=== PATIENT | male | born 1980 | race Caucasian/White ===

== ENCOUNTER 2017-09-13 21:32 | Emergency (ER) | payer SELFPAY ==
[~2017-09-13] VITALS: Ht 180.3 cm; Wt 73.7 kg
[~2017-09-13 21:32] MED LIST: AMOX500T PO
[2017-09-13 22:41] VITALS: BP 104/63; PULSE 107; RESP 24; TEMP 99.7; O2SAT 99
== END 2017-09-14 01:13 | disposition left against medical advice (07) ==
LOC: PHED 21:32
DX: Z53.21 Procedure and treatment not carried out due to patient leaving prior to being seen by health care provider (principal)
CPT/HCPCS: 99281